=== PATIENT | female | born 1990 | race Caucasian/White ===

== ENCOUNTER 2017-10-08 22:21 | Emergency (ER) | payer SELFPAY ==
--- NOTE | 2017-10-08 23:51 | ER Document Report ---
ED General - General Chief Complaint: Heavy bleeding and cramping Stated Complaint: VAGINAL BLEEDING,CRAMPING Time Seen by Provider: 10/08/17 23:50 Mode of Arrival: Ambulatory Information source: Patient TRAVEL OUTSIDE OF THE [place] IN LAST 30 DAYS: No - HPI Patient complains to provider of: Vaginal bleeding and cramping Onset: This afternoon Onset/Duration: Sudden Quality of pain: Cramping Severity: Moderate Associated symptoms: None Exacerbated by: Denies Relieved by: Denies Similar symptoms previously: Yes Recently seen / treated by doctor: No Notes: She states she had her normal period in the beginning of August and then October 01 she started again with her. It lasted for 8 days. Today patient had acute onset of bleeding with clots. She was not sure she was or not. Past Medical History - General Information source: Patient - Social History Smoking Status: Current Every Day Smoker Cigarette use (# per day): Yes Chew tobacco use (# tins/day): No Smoking Education Provided: Yes Frequency of alcohol use: Social Drug Abuse: None Lives with: Family Family History: Reviewed & Not Pertinent Patient has suicidal ideation: No Patient has homicidal ideation: No - Medical History Medical History: Negative Review of Systems - Review of Systems Constitutional: No symptoms reported EENT: No symptoms reported Cardiovascular: No symptoms reported Respiratory: No symptoms reported Gastrointestinal: No symptoms reported Genitourinary: See HPI Female Genitourinary: See HPI Musculoskeletal: No symptoms reported Skin: No symptoms reported Hematologic/Lymphatic: No symptoms reported Neurological/Psychological: No symptoms reported Physical Exam - Vital signs Vitals: Temp Pulse Resp BP Pulse Ox 98.2 F 65 16 115/70 100 10/08/17 22:53 10/08/17 22:53 10/08/17 22:53 10/08/17 22:53 10/08/17 22:53 - Notes Notes: PHYSICAL EXAMINATION: GENERAL: Well-appearing, well-nourished and in no acute distress. HEAD: Atraumatic, normocephalic. EYES: Pupils equal round and reactive to light, extraocular movements intact, conjunctiva are normal. ENT: Nares patent, oropharynx clear without exudates. Moist mucous membranes. NECK: Normal range of motion, supple without lymphadenopathy LUNGS: Breath sounds clear to auscultation bilaterally and equal. No wheezes rales or rhonchi. HEART: Regular rate and rhythm without murmurs ABDOMEN: Soft, nontender, nondistended abdomen. No guarding, no rebound. No masses appreciated. Female : deferred. She states her bleeding is at minimum. Musculoskeletal: Normal range of motion, no pitting or edema. No cyanosis. NEUROLOGICAL: Cranial nerves grossly intact. Normal speech, normal gait. Normal sensory, motor exams PSYCH: Normal mood, normal affect. SKIN: Warm, Dry, normal turgor, no rashes or lesions noted. Course - Vital Signs Vital signs: Temp Pulse Resp BP Pulse Ox 98.2 F 65 16 115/70 100 10/08/17 22:53 10/08/17 22:53 10/08/17 22:53 10/08/17 22:53 10/08/17 22:53 - Laboratory Result Diagrams: 10/09/17 00:48 Discharge - Discharge Clinical Impression: Vagina bleeding Condition: Stable Disposition: HOME, SELF-CARE Instructions: Vaginal Bleeding ([facility]) Additional Instructions: Return to the emergency department if you have any concerns. Please make an appointment with the [facility] I referred you to. Referrals: DIANE LOFTON MD [ACTIVE STAFF] - Follow up as needed
[2017-10-09 01:05] LABS: ABSOLUTE EOSINOPHILS # (AUTO) 0.2 10^3/uL (0.0-0.6); ABSOLUTE LYMPHOCYTES (AUTO) 3.6 10^3/uL (0.5-4.7); ABSOLUTE MONOCYTES (AUTO) 0.5 10^3/uL (0.1-1.4); BASOPHILS % (AUTO) 0.5 % (0-2); EOSINOPHILS % (AUTO) 2.3 % (0-6); HEMATOCRIT 39.9 % (36.0-47.0); HEMOGLOBIN 13.7 g/dL (12.0-15.5); HGB HCT DIFFERENCE 1.2; MEAN CORPUSCULAR HEMOGLOBIN 30.9 pg (27.0-33.4); MEAN CORPUSCULAR HGB CONC 34.5 g/dL (32.0-36.0); MEAN CORPUSCULAR VOLUME 90 fl (80-97); MONOCYTES % (AUTO) 6.6 % (3-13); RED BLOOD COUNT 4.45 10^6/uL (3.72-5.28); RED CELL DISTRIBUTION WIDTH 12.6 % (11.5-14.0); SEGMENTED NEUTROPHILS % (AUTO) 47.6 % (42-78); WHITE BLOOD COUNT 8.3 10^3/uL (4.0-10.5)
[2017-10-09 03:38] VITALS: BP 114/60
== END 2017-10-09 02:15 | disposition home or self-care (01) ==
LOC: ER 22:21
DX: N93.8 Other specified abnormal uterine and vaginal bleeding (principal); F17.210 Nicotine dependence, cigarettes, uncomplicated
CPT/HCPCS: 36415; 81025; 85025; 99284

== ENCOUNTER 2017-10-24 03:16 | Emergency (ER) | payer OTHER ==
[2017-10-24] MEDS ORDERED: KETOROLAC TROMETHAMINE INJ/PF 30 MG/1 ML SDV IV ONE (03:24)
[2017-10-24] MEDS ORDERED: ACETAMINOPHEN WITH CODEINE #3 TABLET PO ONE (03:24)
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
[2017-10-24 05:35] VITALS: BP 130/81
== END 2017-10-24 05:32 | disposition home or self-care (01) ==
LOC: ER 03:16 → EEVIPCON 03:16 → ER 05:32
DX: S16.1XXA Strain of muscle, fascia and tendon at neck level, initial encounter (principal); M54.2 Cervicalgia; R51 Headache; M25.561 Pain in right knee; M25.562 Pain in left knee; V87.7XXA Person injured in collision between other specified motor vehicles (traffic), initial encounter
CPT/HCPCS: 99284; 96374; 71020; 73562 ×2; 70450; 72125; J1885

== ENCOUNTER 2018-09-11 13:12 | Emergency (ER) | payer OTHER, MEDICAID ==
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
[2018-09-11 13:48] LABS: ABSOLUTE EOSINOPHILS # (AUTO) 0.1 10^3/uL (0.0-0.6); ABSOLUTE LYMPHOCYTES (AUTO) 1.7 10^3/uL (0.5-4.7); ABSOLUTE MONOCYTES (AUTO) 0.4 10^3/uL (0.1-1.4); BASOPHILS % (AUTO) 0.3 % (0-2); EOSINOPHILS % (AUTO) 0.7 % (0-6); LYMPHOCYTES % (AUTO) 16.4 % (13-45); MEAN CORPUSCULAR HEMOGLOBIN 30.5 pg (27.0-33.4); MEAN CORPUSCULAR HGB CONC 34.2 g/dL (32.0-36.0); MEAN CORPUSCULAR VOLUME 89 fl (80-97); MONOCYTES % (AUTO) 4.3 % (3-13); PLATELET COUNT 349 10^3/uL (150-450); RED BLOOD COUNT 4.93 10^6/uL (3.72-5.28); RED CELL DISTRIBUTION WIDTH 12.7 % (11.5-14.0); SEGMENTED NEUTROPHILS % (AUTO) 78.3 % (42-78); TOTAL CELLS COUNTED % (AUTO) 100 %; WHITE BLOOD COUNT 10.3 10^3/uL (4.0-10.5)
[2018-09-11] MEDS ORDERED: ACETAMINOPHEN 325 MG TABLET PO ONE (13:58)
[2018-09-11] MEDS ORDERED: LORAZEPAM 1 MG TABLET PO ONE ×2 (13:58→18:23)
[2018-09-11 14:02] LABS: APPEARANCE,URINE CLOUDY; BILIRUBIN,URINE NEGATIVE (NEGATIVE); COLOR,URINE AMBER; GLUCOSE, URINE NEGATIVE (NEGATIVE); KETONES,URINE NEGATIVE (NEGATIVE); LEUKOCYTE ESTERASE,URINE SMALL (NEGATIVE); NITRITE,URINE NEGATIVE (NEGATIVE); PROTEIN,URINE 30 mg/dL (NEGATIVE); URINE SPECIFIC GRAVITY 1.024
[2018-09-11 14:04] LABS: ALANINE AMINOTRANSFERASE 13 U/L (9-52); ALBUMIN 5.1 g/dL (3.5-5.0); ALKALINE PHOSPHATASE 64 U/L (38-126); ANION GAP 16 (5-19); ASPARTATE AMINO TRANSFERASE 22 U/L (14-36); BILIRUBIN,DIRECT 0.2 mg/dL (0.0-0.4); BILIRUBIN,TOTAL 0.6 mg/dL (0.2-1.3); BLOOD UREA NITROGEN 10 mg/dL (7-20); CALCIUM 10.6 mg/dL (8.4-10.2); CARBON DIOXIDE 27 mmol/L (22-30); CHLORIDE 102 mmol/L (98-107); GLUCOSE 120 mg/dL (75-110); POTASSIUM 4.1 mmol/L (3.6-5.0); SODIUM 144.7 mmol/L (137-145); TOTAL PROTEIN 8.3 g/dL (6.3-8.2)
[2018-09-11] MEDS ORDERED: IBUPROFEN 600 MG TABLET PO ONE (14:57)
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
[2018-09-11] MEDS ORDERED: LIDOCAINE 1% INJ-PF (10 MG/ML) 30 ML SDV INJ ONE (15:16)
[2018-09-11] MEDS ORDERED: CEFTRIAXONE INJ 250 MG VIAL IM ONE (15:16)
[2018-09-11] MEDS ORDERED: PROMETHAZINE HCL 25 MG TABLET PO ONE (15:16)
[2018-09-11] MEDS ORDERED: AZITHROMYCIN 250 MG TABLET PO ONE (15:16)
[2018-09-11] MEDS ORDERED: METRONIDAZOLE 500 MG TABLET PO ONE (15:16)
[2018-09-11] MEDS ORDERED: LEVONORGESTREL 1.5 MG TABLET (1 TAB/ER-USE) PO ONE ×2 (15:16→19:46)
[2018-09-11] MEDS ORDERED: AZITHROMYCIN 250 MG TABLET ONE (18:21)
[2018-09-11] MEDS ORDERED: CEFTRIAXONE INJ 1000 MG VIAL ONE (18:22)
[2018-09-11] MEDS ORDERED: DIPHENHYDRAMINE HCL 25 MG CAPSULE PO ONE (18:23)
[2018-09-11] MEDS ORDERED: PROMETHAZINE HCL 25 MG TABLET ONE (18:23)
[2018-09-11] MEDS ORDERED: METOCLOPRAMIDE HCL 10 MG TABLET PO ONE (18:23)
[2018-09-11] MEDS ORDERED: LIDOCAINE 1% INJ-PF (10 MG/ML) 30 ML SDV ONE (18:24)
[2018-09-11] MEDS ORDERED: METRONIDAZOLE 250 MG TABLET PO ONE (18:33)
[2018-09-11] MEDS ORDERED: METRONIDAZOLE 500 MG TABLET ONE ×2 (18:48→19:08)
[2018-09-11] MEDS ORDERED: EMTRICITABINE/TENOFOVIR 200-300 MG TAB (3 TAB/ER DISP) PO PRN (18:58)
[2018-09-11 19:11] LABS: BACTERIA (WET MOUNT) 3+ BACTERIA SEEN; EPITHELIALS (WET MOUNT) 3+ EPITHELIALS SEEN; RBCS (WET MOUNT) FEW RBCS SEEN; T.VAGINALIS (WET MOUNT) NO TRICHOMONAS SEEN; WBCS (WET MOUNT) 3+ WBCS SEEN; YEAST (WET MOUNT) NO YEAST SEEN
[2018-09-11 19:58] VITALS: BP 131/79
[2018-09-11] MEDS ORDERED: ONDANSETRON ODT 4 MG TAB (6 TAB/ER DISP) PO PRN (20:04)
[2018-09-13 07:42] LABS: HEPATITIS A AB IGM Negative (Negative); HEPATITIS B CORE AB IGM Negative (Negative); HEPATITS B SURFACE ANTIGEN Negative (Negative)
[2018-09-13 10:51] LABS: HEPATITIS C VIRUS ANTIBODY <0.1 s/co ratio (0.0-0.9)
== END 2018-09-11 20:15 | disposition home or self-care (01) ==
LOC: ER 13:12
DX: T76.21XA Adult sexual abuse, suspected, initial encounter (principal); S06.9X9A Unspecified intracranial injury with loss of consciousness of unspecified duration, initial encounter; Y04.8XXA Assault by other bodily force, initial encounter; F17.210 Nicotine dependence, cigarettes, uncomplicated; R00.0 Tachycardia, unspecified; R03.0 Elevated blood-pressure reading, without diagnosis of hypertension; Z63.0 Problems in relationship with spouse or partner
CPT/HCPCS: 99406; 99285; 96372; 36415; 87210; 85025; 81025; 86592; 80053; 81001; 86701; 80074; J3490 ×2; J0696

== ENCOUNTER 2019-01-23 14:48 | Emergency (ER) | payer MEDICAID, OTHER ==
--- NOTE | 2019-01-23 16:12 | ER Document Report ---
ED Medical Screen (RME) - General Chief Complaint: Syncope Stated Complaint: SYNCOPE Time Seen by Provider: 01/23/19 15:43 Primary Care Provider: PAT ROB MD [Primary Care Provider] - Follow up as needed Mode of Arrival: Medic Information source: Patient Notes: Patient presents with complaint of cough and congestion that has been ongoing for 1 month. Patient reports she was being seen at her primary care provider's office today when she passed out. Patient reports that she passed out 4 times over the weekend but did not seek treatment. Patient denies any history of syncope prior to this. Patient reports fevers at home. Patient concerned that she may have a pneumonia. Of note patient did receive 1 g of ceftriaxone IM just prior to arrival at her primary care provider's office, see outpatient records. Exam: Lung sounds clear to auscultation bilaterally. I have greeted and performed a rapid initial assessment of this patient. A comprehensive ED assessment and evaluation of the patient, analysis of test results and completion of the medical decision making process will be conducted by additional ED providers. Dictation of this chart was performed using voice recognition software; therefore, there may be some unintended grammatical errors. TRAVEL OUTSIDE OF THE [place] IN LAST 30 DAYS: No - Related Data Allergies/Adverse Reactions: Iodinated Contrast- Oral and IV Dye Allergy (Unknown, Verified 01/23/19 14:49) iodine Adverse Reaction (Verified 01/23/19 14:49) Past Medical History - Social History Chew tobacco use (# tins/day): No Frequency of alcohol use: None Drug Abuse: None Renal/ Medical History: Denies: Hx Peritoneal Dialysis Physical Exam - Vital signs Vitals: Temp Pulse Resp BP Pulse Ox 98.4 F 60 13 111/57 L 99 01/23/19 15:01 01/23/19 15:01 01/23/19 15:01 01/23/19 15:01 01/23/19 15:01 Course - Vital Signs Vital signs: Temp Pulse Resp BP Pulse Ox 98.4 F 60 13 111/57 L 99 01/23/19 15:01 01/23/19 15:01 01/23/19 15:01 01/23/19 15:01 01/23/19 15:01 Doctor's Discharge - Discharge Referrals: PAT ROB MD [Primary Care Provider] - Follow up as needed
--- NOTE | 2019-01-23 16:26 | RADIOLOGY REPORT (SQ) ---
EXAM DESCRIPTION: CHEST 2 VIEWS COMPLETED DATE/TIME: 01/23/2019 4:20 pm REASON FOR STUDY: rme- syncope COMPARISON: 10/24/2017. EXAM PARAMETERS: NUMBER OF VIEWS: two views TECHNIQUE: Digital Frontal and Lateral radiographic views of the chest acquired. RADIATION DOSE: NA LIMITATIONS: none FINDINGS: LUNGS AND PLEURA: No opacities, masses or pneumothorax. No pleural effusion. MEDIASTINUM AND HILAR STRUCTURES: No masses or contour abnormalities. HEART AND VASCULAR STRUCTURES: Heart normal size. No evidence for failure. BONES: No acute findings. HARDWARE: None in the chest. OTHER: No other significant finding. IMPRESSION: NO ACUTE RADIOGRAPHIC FINDING IN THE CHEST. TECHNICAL DOCUMENTATION: JOB ID: [id number] [employer]- All Rights Reserved Reading location - IP/workstation name: [email or web address]
[2019-01-23 17:09] LABS: ABSOLUTE EOSINOPHILS # (AUTO) 0.2 10^3/uL (0.0-0.6); ABSOLUTE LYMPHOCYTES (AUTO) 3.1 10^3/uL (0.5-4.7); ABSOLUTE MONOCYTES (AUTO) 0.6 10^3/uL (0.1-1.4); ABSOLUTE NEUT (AUTO) 6.1 10^3/uL (1.7-8.2); BASOPHILS % (AUTO) 0.4 % (0-2); HEMATOCRIT 39.8 % (36.0-47.0); HEMOGLOBIN 13.6 g/dL (12.0-15.5); LYMPHOCYTES % (AUTO) 31.2 % (13-45); MEAN CORPUSCULAR HEMOGLOBIN 30.3 pg (27.0-33.4); MEAN CORPUSCULAR HGB CONC 34.1 g/dL (32.0-36.0); MEAN CORPUSCULAR VOLUME 89 fl (80-97); MONOCYTES % (AUTO) 5.5 % (3-13); PLATELET COUNT 306 10^3/uL (150-450); RED BLOOD COUNT 4.48 10^6/uL (3.72-5.28); RED CELL DISTRIBUTION WIDTH 13.1 % (11.5-14.0); SEGMENTED NEUTROPHILS % (AUTO) 60.9 % (42-78); TOTAL CELLS COUNTED % (AUTO) 100 %
[2019-01-23 17:40] LABS: ALANINE AMINOTRANSFERASE 41 U/L (9-52); ALBUMIN 4.4 g/dL (3.5-5.0); ALKALINE PHOSPHATASE 75 U/L (38-126); ANION GAP 9 (5-19); ASPARTATE AMINO TRANSFERASE 39 U/L (14-36); BILIRUBIN,DIRECT 0.2 mg/dL (0.0-0.4); BILIRUBIN,TOTAL 0.2 mg/dL (0.2-1.3); BLOOD UREA NITROGEN 11 mg/dL (7-20); CALCIUM 9.8 mg/dL (8.4-10.2); CARBON DIOXIDE 25 mmol/L (22-30); CHLORIDE 104 mmol/L (98-107); GLUCOSE 116 mg/dL (75-110); POTASSIUM 3.8 mmol/L (3.6-5.0); SODIUM 137.9 mmol/L (137-145); TOTAL PROTEIN 7.7 g/dL (6.3-8.2)
[2019-01-23 18:49] LABS: AMORPHOUS SEDIMENT,URINE TRACE /HPF; APPEARANCE,URINE CLOUDY; BILIRUBIN,URINE NEGATIVE (NEGATIVE); COLOR,URINE YELLOW; GLUCOSE, URINE NEGATIVE (NEGATIVE); KETONES,URINE NEGATIVE (NEGATIVE); LEUKOCYTE ESTERASE,URINE NEGATIVE (NEGATIVE); NITRITE,URINE NEGATIVE (NEGATIVE); PROTEIN,URINE NEGATIVE (NEGATIVE); URINE SPECIFIC GRAVITY 1.015
--- NOTE | 2019-01-23 19:30 | ER Document Report ---
ED Dizziness/Weakness - General Chief Complaint: Syncope Stated Complaint: SYNCOPE Time Seen by Provider: 01/23/19 19:30 Primary Care Provider: PAT ROB MD [PEDIATRICS] - Follow up as needed Mode of Arrival: Ambulatory Information source: Patient Notes: HISTORY OF PRESENT ILLNESS: Patient is a 28-year-old female with a past medical history of anxiety who presents with intermittent episodes of syncope that have occurred approximately 5-6 times the past several days. Patient does report having episodes of palpitations preceding her symptoms. Location: Global Onset: Sudden Provocation: Unknown Quality: Weakness Radiation: None Severity: Moderate Timing: Episodic and intermittent LMP: 2 weeks ago Associated symptoms: No fevers or chills, no cough or congestion, no chest pain or shortness of breath REVIEW OF SYSTEMS: CONSTITUTIONAL : Denies fever or chills, no sweats. Denies recent illness. EENT: Denies eye, ear, throat, or mouth pain or symptoms. Denies nasal or sinus congestion. CARDIOVASCULAR: Denies chest pain. Positive for palpitations. RESPIRATORY: Denies cough, cold, or chest congestion. Denies shortness of breath, difficulty breathing, or wheezing. GASTROINTESTINAL: Denies abdominal pain. Denies nausea, vomiting, or diarrhea. Denies constipation. GENITOURINARY: Denies difficulty urinating, painful urination, burning, frequency, or blood in urine. Denies vaginal bleeding, abnormal or irregular periods. MUSCULOSKELETAL: Denies neck or back pain or joint pain or swelling. SKIN: Denies rash or skin lesions. HEMATOLOGIC : Denies easy bruising or bleeding. LYMPHATIC: Denies swollen, enlarged glands. NEUROLOGICAL: Denies altered mental status or loss of consciousness. Denies headache. Denies weakness or paralysis or loss of use of either side. Denies problems with gait or speech. Denies sensory or motor loss. PSYCHIATRIC: Denies anxiety or stress or depression. All other systems reviewed and negative. PHYSICAL EXAMINATION: GENERAL: Anxious but well-appearing, well-nourished and in no acute distress. HEAD: Atraumatic, normocephalic. No scalp deformity, depression, or crepitance. EYES: Pupils are 3 mm and equal/round/reactive to light, extraocular movements intact, sclera anicteric, conjunctiva are normal. ENT: Nares patent bilaterally, oropharynx clear without exudates or palatal petechia. Moist mucous membranes. No tonsil hypertrophy. NECK: Normal range of motion, supple without lymphadenopathy. LUNGS: Breath sounds present, equal, and clear to auscultation bilaterally. No wheezes, rales, or rhonchi. HEART: Regular rate and rhythm without murmurs, rubs, or gallops. 2+ peripheral pulses. Normal capillary refill. ABDOMEN: Soft, nontender, nondistended. Normoactive bowel sounds. No guarding, no rebound. No masses appreciated. BACK: Normal contour, no midline tenderness. Rectal exam deferred. PELVC: Deferred. EXTREMITIES: Normal range of motion, no pitting or edema. No cyanosis. NEUROLOGICAL: No focal neurological deficits. Moves all extremities spontaneously and on command. PSYCH: Normal mood, normal affect. No suicidal thoughts/ideations. No homocidal thoughts/ideations. No hallucinations. SKIN: Warm, dry, normal turgor, no rashes or lesions noted. ASSESSMENT AND PLAN: This patient is a 28-year-old female who presents with intermittent episodes of palpitations preceding syncopal events. Most likely etiology is PSVT versus versus dehydration. 1. Will obtain labs, urine, test, chest x-ray, EKG, and reassess. 2. Will observe until workup is complete. TRAVEL OUTSIDE OF THE [place] IN LAST 30 DAYS: No - Related Data Allergies/Adverse Reactions: Iodinated Contrast- Oral and IV Dye Allergy (Unknown, Verified 01/23/19 14:49) iodine Adverse Reaction (Verified 01/23/19 14:49) Past Medical History - General Information source: Patient - Social History Smoking Status: Current Every Day Smoker Chew tobacco use (# tins/day): No Frequency of alcohol use: None Drug Abuse: None Lives with: Family Family History: Reviewed & Not Pertinent Patient has suicidal ideation: No Patient has homicidal ideation: No - Medical History Medical History: Negative - Past Medical History Cardiac Medical History: Reports: None Pulmonary Medical History: Reports: None EENT Medical History: Reports: None Neurological Medical History: Reports: None Endocrine Medical History: Reports: None Renal/ Medical History: Reports: None. Denies: Hx Peritoneal Dialysis Malignancy Medical History: Reports: None GI Medical History: Reports: None Musculoskeletal Medical History: Reports None Skin Medical History: Reports None Psychiatric Medical History: Reports: None Traumatic Medical History: Reports: None Infectious Medical History: Reports: None Surgical Hx: Negative Past Surgical History: Reports: None - Immunizations Immunizations up to date: Yes Hx Diphtheria, Pertussis, Tetanus Vaccination: Yes History of Influenza Vaccine for 07/2017 - 12/2017 Season: Yes Physical Exam - Vital signs Vitals: Temp Pulse Resp BP Pulse Ox 98.4 F 60 13 111/57 L 99 01/23/19 15:01 01/23/19 15:01 01/23/19 15:01 01/23/19 15:01 01/23/19 15:01 Course - Re-evaluation Re-evalutation: 01/23/19 21:01 Blood work and urinalysis are normal, EKG is unremarkable. Patient will be discharged home with return precautions and cardiology follow-up. Patient voices both understanding and agreeing with the plan. - Vital Signs Vital signs: Temp Pulse Resp BP Pulse Ox 98.4 F 60 13 111/57 L 99 01/23/19 15:01 01/23/19 15:01 01/23/19 15:01 01/23/19 15:01 01/23/19 15:01 - Laboratory Result Diagrams: 01/23/19 16:39 01/23/19 16:39 Laboratory results interpreted by me: 01/23/19 01/23/19 16:39 18:00 Glucose 116 H AST 39 H Urine Urobilinogen 2.0 H Urine Ascorbic Acid 40 H - Diagnostic Test Radiology reviewed: Image reviewed, Reports reviewed - EKG Interpretation by Ar EKG shows normal: Sinus rhythm Rate: Normal Rhythm: NSR [place]/QRS: No: Right axis deviation, Left axis deviation, RBBB, LBBB, IVCD, LAHB/LAFB, LPHB/LPFB, Bifasicular block Voltage: No: Increased voltage, Consistant with LVH, Decreased voltage, Throughout, Limb leads P Waves: No: PANFILO, LAE, Absent, AV Dissociation, Other Heart block present: No: 1st Degree, Mobitz 1, Mobitz 2, CHB (3rd degree block) When compared to previous EKG there are: No significant change Discharge - Discharge Clinical Impression: Syncope Qualifiers: Syncope type: unspecified Qualified Code(s): R55 - Syncope and collapse Condition: Good Disposition: HOME, SELF-CARE Instructions: Syncopal Episode ([facility]) Additional Instructions: You have been evaluated in the Emergency Department for episodes of passing out. While here, you had blood work and urinalysis that were normal and it is now safe to be discharged home. Please follow-up with your primary physician as we ll as a Unit Leader as instructed. Return to the Emergency Department if you experience chest pain, difficulty breathing, or any other concerning symptoms. Forms: Return to Work Referrals: PAT ROB MD [PEDIATRICS] - Follow up as needed BRIANNE MILLIGAN MD [ACTIVE STAFF] - Follow up as needed Print Language: Georgian
--- NOTE | 2019-01-23 19:34 | EKG REPORT ---
SEVERITY:- NORMAL ECG - SINUS RHYTHM : Confirmed by: Merritt Dwoning MD 23-Jan-2019 19:33:09
[2019-01-23 21:02] VITALS: BP 118/66
== END 2019-01-23 21:10 | disposition home or self-care (01) ==
LOC: ER 14:48
DX: R55 Syncope and collapse (principal); R00.2 Palpitations; F17.200 Nicotine dependence, unspecified, uncomplicated
CPT/HCPCS: 36415; 71046; 80053; 81001; 84703; 85025; 93005; 93010; 99284